=== PATIENT | female | born 1980 | race Caucasian/White ===

== ENCOUNTER 2017-02-11 13:06 | Emergency (ER) | payer MEDICAID ==
[2017-02-11 13:06] VITALS: BMI 33.6
[2017-02-11] MEDS ORDERED: methylPREDNISolone 125 MG in Sodium Chloride 0.9% 100 ML IVPB STA (13:15)
[2017-02-11] MEDS ORDERED: Albuterol-Ipratrop 3 mg / 0.5 (3 ml) UD IH STA (13:16)
[2017-02-11] MEDS ORDERED: Albuterol-Ipratrop 3 mg / 0.5 (3 ml) UD ONE (13:34)
--- NOTE | 2017-02-11 14:15 | C.PDOC ---
History Of Present Illness 36 year old female presents to the ED with complaints of chest congestion and cough. Patient states that during routine [employer] visit she went to the bathroom to give a urine sample and bathroom was being cleaned and had fumes. She notes the fumes lead to asthma symptoms and was given a nebulizer treatment at doctor' s office and was sent to ED for further nebulizer treatment. She is and currently 24 weeks . Patient notes symptoms are similar symptoms when encountering fumes and denies any CP or vomiting. Time Seen by Provider: 02/11/17 13:07 Chief Complaint (Nursing): Shortness Of Breath History Per: Patient History/Exam Limitations: no limitations Onset/Duration Of Symptoms: Hrs Current Symptoms Are (Timing): Still Present Initiating Event: Other (in bathroom with cleaning fumes ). denies: Exercising/ Sports, Choking, Exposure To Smoke, Exposure To Mold Current Respiratory Medications: Other (Used nebulizer treatment at [employer]'s office. ) Associated Symptoms: denies: Fever, Chills, Sweating, Bloody Cough Reports Recently: Treated By A Physician Recent travel outside of the [place]: No Past Medical History Reviewed: Historical Data, Nursing Documentation, Vital Signs Vital Signs: Last Vital Signs Temp 98.1 F 02/11/17 14:15 Pulse 100 H 02/11/17 14:15 Resp 16 02/11/17 14:15 BP 111/74 02/11/17 14:15 Pulse Ox 97 02/11/17 14:25 - Medical History PMH: Anxiety, Arthritis, Asthma, Back Problems, Bronchitis, Depression, HTN, Kidney Stones, Migraine, Personality Disorder, Post Traumatic Stress Disorder, Chronic Pain - [facility] Procedures MEDICATION MANAGEMENT (09/13/16) Family History: States: Unknown Family Hx - Social History Hx Tobacco Use: Yes Hx Alcohol Use: No Hx Substance Use: Yes - Immunization History Hx Tetanus Toxoid Vaccination: No Hx Influenza Vaccination: Yes Hx Pneumococcal Vaccination: No Review Of Systems Constitutional: Negative for: Fever, Chills, Sweats Cardiovascular: Positive for: Other (chest congestion ). Negative for: Chest Pain, Palpitations Respiratory: Positive for: Cough. Negative for: Shortness of Breath Gastrointestinal: Negative for: Nausea, Vomiting, Abdominal Pain, Diarrhea Neurological: Negative for: Headache Physical Exam - Physical Exam Additional Physical Exam Comments: Constitutional: No acute distress. Patient has hoarse voice. Head: Normocephalic. Atraumatic. Eyes: PERRL. ENT: Moist mucous membranes. Neck: Supple. Cardiovascular: Regular rate. Radial pulse 2+ bilaterally. Chest: No tenderness. Respiratory: Clear to auscultation bilaterally. GI: Soft. Nontender. Nondistended. Back: No CVA tenderness. Musculoskeletal: No tenderness or swelling of extremities. Skin: No rash. Neurologic: Alert, no focal deficit. ED Course And Treatment O2 Sat by Pulse Oximetry: 97 (room air ) Medical Decision Making Medical Decision Making: Patient treated with nebulizers and steroids in ER, feels better and comfortable to go home. Will discharge, f/u PMD/pulm, instructed to return to ER for worsening dyspnea, need for albuterol more frequent than Q4. No pelvic issues, no indication for L&D evaluation. Disposition - Disposition Disposition: HOME/ ROUTINE Disposition Time: 15:19 Condition: STABLE Prescriptions: Albuterol 0.083% [Albuterol Sulfate 3 Ml] 3 ml IH Q4 #150 neb Nebulizer [Aeroeclipse II] 1 each MC ONCE #1 each Prednisone [Deltasone] 3 tab PO DAILY #12 tablet Instructions: Bronchospasm (ED) - Clinical Impression Clinical Impression: Asthma exacerbation - Scribe Statement The provider has reviewed the documentation as recorded by the Scribpraveen Fung All medical record entries made by the Galindoibpraveen were at my direction and personally dictated by me. I have reviewed the chart and agree that the record accurately reflects my personal performance of the history, physical exam, medical decision making, and the department course for this patient. I have also personally directed, reviewed, and agree with the discharge instructions and disposition.
[2017-02-11 15:33] VITALS: BP 119/71; PULSE 101; RESP 18; TEMP 98.2; O2SAT 100
== END 2017-02-11 15:32 | disposition home or self-care (01) ==
LOC: C.ER 13:06
DX: J45.901 Unspecified asthma with (acute) exacerbation (principal)
CPT/HCPCS: 94640; 96374; 99284; J2930